=== PATIENT | male | born 1955 | race Caucasian/White ===

== ENCOUNTER → 2017-06-05 15:23 | Outpatient (POV) | payer OTHER, SELFPAY | PROVIDERS: Family Provider Family Medicine; PCP Family Medicine; Visit Provider Dermatology | DX: Z00.00 Encounter for general adult medical examination without abnormal findings (principal) ==

== ENCOUNTER → 2022-08-14 09:14 | Outpatient (CLI) | payer MEDICARE, BC, SELFPAY ==
--- NOTE | 2022-08-14 09:29 | XR_ITS ---
FINAL REPORT CLINICAL HISTORY: LT SIDED SCIATICA FINDINGS: LUMBAR SPINE Six views demonstrate no acute fracture. There are moderate degenerative changes with disc space narrowing and osteophyte formation. Facet arthropathy is identified. Note is made of rightward curvature. Vascular calcification is seen. There is no malalignment. IMPRESSION: Degenerative changes without acute bony abnormality. Reviewed, Interpreted and Dictated by Mich Walls III, MD Transcribed by Kathleen Nolasco Authenticated and [facility]
== END ==
PROVIDERS: PCP Family Medicine; Visit Provider Family Medicine
DX: M54.32 Sciatica, left side (principal)
CPT/HCPCS: 72110

== ENCOUNTER 2022-09-25 08:25 | Day surgery (SDC) | payer MEDICARE, BC, SELFPAY ==
[2022-09-10 14:31] VITALS: BMI 28.3
[2022-09-25 08:40] VITALS: BP 161/81; PULSE 78; RESP 18; TEMP 36.5; O2SAT 100; BMI 28.4
--- NOTE | 2022-09-25 08:41 | P.PN_ITS ---
[facility] Disclaimer: The information contained in this section may have been updated after the patient was seen, as this information can be updated by other users. Medical History (Updated 09/10/22 @ 14:30 by Christel Mendez RN) Diabetes mellitus, type 2 Gout Hypertension Surgical History (Updated 09/10/22 @ 14:30 by Christel Mendez RN) History of excision of lamina of cervical vertebra for decompression of spinal cord History of tonsillectomy Family History (Updated 09/10/22 @ 14:30 by Christel Mendez RN) Other Family history of Alzheimer's disease Family history of diabetes mellitus type II Social History (Updated 09/10/22 @ 14:30 by Christel Mendez RN) Smoking Status: Never smoker alcohol intake: never substance use type: denies use current occupational status: retired Travel in the last 8 weeks: None household members: spouse housing: house marital status: education level: vocational special chau needs: No do you feel safe at home: Yes victim of physical abuse: No victim of emotional abuse: No victim of sexual abuse: No would you like helpful sources: No [facility] Anesthesia Checklist Patient Identification Patient Identification: Arm Band and Family Structural Data Admitted From: Home Planned Operative Procedure/s: Colonoscopy Consent for Planned Operative Procedure(s) Verified: Yes Verified Documents: Surgical Consent and History and Physical NPO Status Verified Time NPO: 00:00 Additional verifications Patient : No Anesthesia Reactions: No Hx Blood Transfusions: No Blood Transfusion Reaction: No Cephalosporin Allergy: No Previous Colonoscopy: No Cardiovascular Assessment Peripheral Edema: No Airway Assessment C-Spine Mobility Assessed: Yes TMJ Mobility Assessed: Yes Dentition: Good Dentition Neurological Assessment Level of Consciousness: Awake, Alert, Appropriate and Follows Commands Hx Seizures: No Numbness or tingling in extremities: No Anesthesia Plan Anesthesia Risk discussed: Yes ASA Class: II Anesthesia Type: MAC Preoperative Comments Pre-Operative Comments: Limited neck ROM
[2022-09-25 08:58] LABS: POC Glucose,Bedside 165 (70-110)
[2022-09-25 09:25] VITALS: O2SAT 100
--- NOTE | 2022-09-25 09:45 | HMH.SCOPE ---
Procedure: Date: 09/25/22 Patient Date of :: 1955 Procedure Performed:: Colonoscopy Indications:: The patient is a 67 year old who presents for surveillance colonoscopy for a history of colon polyps Performing Provider:: Bud Dela Cruz MD Referring Provider:: Maciej Laureano MD Sedation:: See RN records Procedure:: After placing the patient in the left lateral decubitus position, the colonoscopy was gently inserted into the rectum and under direct visualization advanced to the cecum which was identified by transillumination in the right lower quadrant, identification of the ileocecal valve, appendiceal orifice, and cecal strap. Color, texture, mucosa, and anatomy of the colon were carefully examined with the scope. Findings:: Anal canal: normal Rectum: hemorrhoids Sigmoid colon: normal without polyps or inflammatory changes Descending colon: normal without polyps or inflammatory changes Splenic flexure: normal Transverse colon: normal without polyps or inflammatory changes Hepatic flexure: diminutive polyp. Removed with cold forceps Ascending colon: Two polyps less than 5 mm in size. Removed with cold snare polypectomy and cold forceps Cecum: normal Terminal ileum: not visualized Preparation was excellent Impression: Small polyps of the ascending colon and hepatic flexure Hemorrhoids, grade 1 Recommendations:: Await pathology results Repeat colonscopy in 5 years Complications:: Await pathology results Estimated blood obtained (mL): 0
[2022-09-25 09:48] VITALS: BP 119/66; PULSE 73; RESP 18; TEMP 36.6; O2SAT 95
[2022-09-25 09:58] VITALS: BP 105/68; PULSE 87; RESP 16; O2SAT 97
[2022-09-25 10:08] VITALS: BP 105/73; PULSE 69; RESP 16; O2SAT 98
[2022-09-25 10:18] VITALS: BP 123/80; PULSE 70; RESP 16; O2SAT 99
== END 2022-09-25 10:20 | disposition home or self-care (01) ==
PROVIDERS: PCP Family Medicine; Visit Provider Internal Medicine
PROC: 0DJD8ZZ Inspection of Lower Intestinal Tract, Via Natural or Artificial Opening Endoscopic (ICD-10-PCS; CPT 45378; principal; 2022-09-25 09:30)
DX: Z12.11 Encounter for screening for malignant neoplasm of colon (principal); Z86.010 Personal history of colon polyps; D12.2 Benign neoplasm of ascending colon; E11.9 Type 2 diabetes mellitus without complications; Z79.899 Other long term (current) drug therapy
CPT/HCPCS: 45380; 45385; 82962; 88305